=== PATIENT | female | born 1965 | race American Indian/Alaskan Native ===

== ENCOUNTER 2018-08-15 13:17 | Outpatient (CLI) | payer OTHER ==
[2018-08-15 13:50] LABS: Blood Urea Nitrogen 12 mg/dL (7-17)
[2018-08-15] MEDS ORDERED: XYLOCAINE 1% 20 mL ONE ×2 (14:43→15:25)
--- NOTE | 2018-08-16 00:15 | Magnetic Resonance Report ---
FINAL REPORT EXAM: MR UE JOINT RT WO CON HISTORY: LATERAL EPICONDYLITIS, RIGHT ELBOW. TECHNIQUE: Routine MRI elbow per institution protocol. MPR.Right elbow studied.Image quality satisf actory. PRIORS: None FINDINGS: MEDIAL:Ulnar collateral ligament: IntactCommon flexor tendon: IntactMedial epicondyle: Intact LATERAL :Radial collateral ligament: IntactLateral ulnar collateral ligament: IntactCommon extensor tendon: T here is marked thickening with intrasubstance T2 hyperintense signal within the common extensor tendo n at the lateral humeral epicondyle (tissues coronal is 7). ANTERIOR: Biceps: IntactBrachialis: Int act POSTERIOR:Triceps: IntactOlecranon: Intact OSSEOUS/ARTICULAR STRUCTURES:Bone marrow signal appear s normal without identified fracture, dislocation or avascular necrosis. No high-grade articular ca rtilage loss of the radiocapittelar or ulnotrochlear articulation. NERVES:Ulnar: Cubital tunnel tan l, retinaculum intact. No anconeous epitrochlearis muscle present. Radial/Median: Normal signal inten sity. MISCELLANEOUS:No significant joint effusion. No intraarticular body. IMPRESSION: Partial thickness tear of the common extensor tendon origin at the lateral humeral epicondyle on a ba ckground of tendinopathy. No acute osseous/articular cartilage finding or significant ligament injury.
--- NOTE | 2018-08-16 00:26 | Magnetic Resonance Report ---
FINAL REPORT EXAM: MR UE JOINT RT W CON HISTORY: STRAIN OF UNSPECIFIED MUSCLE. TECHNIQUE: MRI evaluation was performed of the right shoulder to include axial axial T1 fat sat and gradient; sagittal proton density, T1 fat sat; coronal T1 fat sat and T2 fat saturated sequences. I maging procedures the gadolinium solution. PRIORS: None. FINDINGS: Rotator cuff: There is a focal, high-grade articular sided tear of the anterior leading edge fibers o f the supraspinatus estimated at 9 mm from anterior to posterior. Findings on a background of tendon thickening and intermediate signal. There is additional moderate thickening and intermediate signal w ithin the infraspinatus distal tendon and a small subacromial/subdeltoid bursal fluid collection. The subscapularis tendon and teres minor distal tendons are intact. No significant atrophy or fatty infi ltration of the rotator cuff musculature noted. Coracoacromial arch: Moderate degenerative changes of the acromioclavicular articulation present. Und ersurface enthesophytes at the anterior aspect of the distal acromion are noted. The coracoacromial l igament appears mildly thickened. There is no os acromiale. Coracoclavicular ligament complex intact. Biceps: There is intra-articular thickening and intermediate signal within the biceps tendon, no spli t tear. Labrum: Mild fraying of the superior labrum, no displaced labral tear or paralabral cyst. Osseous structures: Mild hypertrophic changes and small cysts are noted at the anterior greater tuber osity. Articular cartilage: There is no high-grade glenohumeral joint articular cartilage loss. IMPRESSION: Focal high-grade (50-75 percent thickness) tear of the anterior leading edge fibers supraspinatus on a background of tendinosis. Additional moderate tendinosis of the distal infraspinatus tendon. Unders urface enthesophytes at the anterior aspect of the distal acromion and small subacromial/subdeltoid b ursal fluid collection present suggestive of extrinsic impingement in the appropriate clinical settin g. No significant rotator cuff atrophy. Moderate tendinosis of the intra-articular biceps tendon, no split tear. Moderate acromioclavicular degenerative changes. No discrete labral tear.
--- NOTE | 2018-08-17 07:29 | Fluoroscopy Report ---
FLUOROSCOPY ARTHROGRAM SHOULDER RIGHT History: Strain of unspecified muscle, right shoulder pain. Description of procedure: Informed consent was obtained. Sterile technique was utilized. 1% lidocaine was used for skin anesthesia. 8 fluoroscopic images were saved. Using fluoroscopy guidance, a 22-gauge spinal needle was advanced into the right glenohumeral joint. 12 cc of a solution containing sterile saline, 1% lidocaine, Omnipaque and gadolinium was injected intra-articularly under fluoroscopic observation. There is good distention of the joint capsule. There is trace extravasation of contrast agent overlying the expected position of the distal infraspinatus tendon. This is best demonstrated on the internal rotational image. No other areas of extravasation are identified. Articulation at the right shoulder appears anatomic. Minimal osteoarthritic changes are noted. IMPRESSION: There appears to be trace extravasation of the contrast agent in the expected position of the distal infraspinatus tendon. This probably represents a tiny tear. Please await the formal report from MR arthrogram.
== END 2018-08-15 13:18 | disposition home or self-care (01) ==
LOC: MRI 13:17
PROVIDERS: ATTEND Preventive Medicine Aerospace Medicine
DX: M19.011 Primary osteoarthritis, right shoulder (principal); M77.11 Lateral epicondylitis, right elbow; S56.911D Strain of unspecified muscles, fascia and tendons at forearm level, right arm, subsequent encounter; S46.911D Strain of unspecified muscle, fascia and tendon at shoulder and upper arm level, right arm, subsequent encounter; M75.21 Bicipital tendinitis, right shoulder; X58.XXXD Exposure to other specified factors, subsequent encounter
CPT/HCPCS: 23350; 36415; 73040; 73221; 73222; 82565; 84520; Q9967

== ENCOUNTER 2020-05-02 09:58 | Outpatient (CLI) | payer OTHER ==
--- NOTE | 2020-05-02 12:12 | Fluoroscopy Report ---
ARTHROGRAM OF THE RIGHT SHOULDER HISTORY: RIGHT SHOULDER RTC TEAR. Right shoulder pain COMPARISON: None. CONSENT: The risks,benefits, and alternatives of theprocedure were discussed with the patient who agr eed toproceed. TECHNIQUE: The patient was placed supine on the fluoroscopy table. The right shoulder joint was iden tified and overlying skin demarcated under fluoroscopic guidance. Area was prepped and draped in the usual sterile fashion. Time-out was performed. Skin and subcutaneous tissues were anesthetized with lidocaine. A 22-gauge spinal needle was placed into the joint space under fluoroscopic guidance. Dilute gadolini um mixture was then injected. The needle was removed and the patient tolerated the procedure well wi thout immediate complication. Internal rotation, external rotation and transaxillary views were obtained. There is no gross extrava sation of contrast on fluoroscopy. FLUOROSCOPIC TIME: 2.9 minutes # IMAGES: 9 CONTRAST VOLUME: 12 ml dilute gadolinium mixture. IMPRESSION: Technically successful arthrogram. See post arthrogram MR. Signer Name: Camilo Carlos Jr, MD Signed: 05/02/2020 12:07 PM Workstation Name: [id number]
--- NOTE | 2020-05-02 14:42 | Magnetic Resonance Report ---
MRI RIGHT SHOULDER WITH INTRA-ARTICULAR CONTRAST INDICATION / CLINICAL INFORMATION: RIGHT SHOULDER RTC TEAR. TECHNIQUE: Multiplanar, multisequence MR images were obtained. No contrast used. COMPARISON: None available. FINDINGS: SUPRASPINATUS: Postoperative appearance of the supraspinatus tendon with no full-thickness tear. Mild articular surface fraying. No significant muscle atrophy. INFRASPINATUS: Moderate distal tendinosis. No tear SUBSCAPULARIS: Moderate distal tendinosis. No tear BICEPS TENDON, LONG HEAD: Moderate intra-articular biceps tendinosis. GLENOID LABRUM: No significant abnormality. ARTICULAR CARTILAGE: Moderate chondrosis. JOINT SPACE AND CAPSULE: Mild thickening of the joint capsule synovitis. ACROMION and A.C. JOINT: Post surgical findings consistent with prior acromioplasty and decompression of the AC joint. SUBACROMIAL/SUBDELTOID SPACE: Contrast fluid signal intensity which is likely injection related. BONES: No significant bone marrow edema. No fracture. No osseous lesion. SOFT TISSUES: No significant abnormality. ADDITIONAL FINDINGS: None. IMPRESSION: 1. Postoperative appearance of the supraspinatus tendon with mild articular sided fraying but no full -thickness tear. 2. Moderate distal tendinosis involving the infraspinatus, subscapularis, and intraarticular biceps. 3. Post surgical findings consistent with prior acromioplasty and decompression of the AC joint. Report dictated by: Rickie Lutz MD Report dictated on: 05/02/2020 1:01 PM I have reviewed the images, agree with this report, and edited this report as needed. Signer Name: Del Salvador MD Signed: 05/02/2020 2:37 PM Workstation Name: [id number]
== END 2020-05-02 09:59 | disposition home or self-care (01) ==
LOC: FLUORO 09:58
PROVIDERS: ATTEND Orthopaedic Surgery Sports Medicine
DX: M75.121 Complete rotator cuff tear or rupture of right shoulder, not specified as traumatic (principal); M75.30 Calcific tendinitis of unspecified shoulder; M75.31 Calcific tendinitis of right shoulder; Z88.8 Allergy status to other drugs, medicaments and biological substances
CPT/HCPCS: 23350; 73040; 73222; A9577; Q9967